=== PATIENT | female | born 1960 | race Asian ===

== ENCOUNTER 2016-11-16 12:58 | Emergency (ER) | payer OTHER ==
[~2016-11-16] VITALS: Ht 152.4 cm; Wt 48.0 kg
[~2016-11-16 12:58] MED LIST: ALPR0.5T PO; BENZ11.92 MM; CYCL-319 PO; DIPH1TAB25 PO; HYDR-906 PO; IBUP-1542 PO; LOSA50TA2 PO; MTF1000T PO; NAPR-260 PO; OMEP20CA16 PO; ONDA4TAB14 PO; ONDA4TAB35 PO; ULT50 PO
[2016-11-16 13:03] VITALS: Ht 152.4 cm; Wt 48.0 kg
--- NOTE | 2016-11-16 16:09 | RADRPT ---
PROCEDURE: CT brain without contrast CLINICAL INDICATION: Headaches, pain TECHNIQUE: CT of the brain without contrast performed on a multidetector CT scanner, with multiplan ar reformats. One or more of the following dose reduction techniques were used: Automated exposure control, adjustment in mA and / or kV according to patient size, use of iterative reconstructive meri hnique. CTDIvol = 45 mGy; DLP = 630.2 mGy-cm. COMPARISON: None available FINDINGS: No acute intracranial hemorrhage is identified. No extra-axial fluid collection is seen. There is no mass effect. No midline shift is identified. Ventricles and sulci are mildly enlarged compatible with generalized volume loss. The density of the brain appears unremarkable. Alvarez-white differentiation is preserved. Osseous structures are unremarkable. Mastoid air cells and imaged paranasal sinuses grossly clear. IMPRESSION: 1. No evidence of acute intracranial pathology. 2. Mild generalized volume loss. RPTAT: VV .Randy Zuñiga MD, Date Time Electronically viewed and signed by .Randy Zuñiga MD, on 11/16/2016 16:09 .O/
[2016-11-16] MEDS ORDERED: IBUP-1542 PO (16:12)
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
[2016-11-16 16:29] VITALS: BP 129/85; PULSE 90; RESP 30; TEMP 98
== END 2016-11-16 17:11 | disposition home or self-care (01) ==
LOC: FTE 12:58
DX: R51 Headache (principal); I10 Essential (primary) hypertension; E11.9 Type 2 diabetes mellitus without complications; Z79.84 Long term (current) use of oral hypoglycemic drugs
CPT/HCPCS: 70450; Z7502

== ENCOUNTER 2017-11-05 13:16 | Emergency (ER) | END 2017-11-05 16:12 | disposition home or self-care (01) ==

== ENCOUNTER 2018-06-24 14:01 | Emergency (ER) | END 2018-06-24 17:22 | disposition home or self-care (01) ==

== ENCOUNTER 2018-07-30 18:37 | Emergency (ER) | END 2018-07-30 23:54 | disposition home or self-care (01) ==